=== PATIENT | female | born 1975 | race Caucasian/White ===

== ENCOUNTER → 2017-08-18 | Outpatient (CLI) | payer BC ==
[~2017-08-18] MED LIST: BUPR-79 PO; CLC100X PO; CYAN100073 PO; FLUT0.15 NAE; MULT-506 PO; PRED-301 PO; SERT50TA PO
[2017-08-18 13:11] LABS: BASO % 0.6 %; BASO ABS # 0.04 K/uL (0-0.2); COMPLETE YES; EOS % 3.7 %; HEMATOCRIT 43.2 % (37-47); IG% 0.1 %; LYMPH % 38.8 %; LYMPH ABS # 2.71 K/uL (1.2-3.4); MEAN CELL VOLUME 89.8 fL (80-100); MEAN CORPUSCULAR HEMOGLOBIN 29.7 pg (25-34); MEAN CORPUSCULAR HGB CONC 33.1 g/dl (32-36); MEAN PLATELET VOLUME 8.8 fL (7.4-10.4); MONO % 9.6 %; NEUT % 47.2 %; PLATELET COUNT 271 K/uL (130-400); RED BLOOD COUNT 4.81 M/uL (4.2-5.4); WHITE BLOOD COUNT 6.99 K/uL (4.8-10.8)
[2017-08-18 13:12] LABS: PREG INTERNAL NEGATIVE QC NEG CLEAR BACKGROUND; PREG INTERNAL POSITIVE QC POS CONTROL LINE
== END | disposition home or self-care (01) ==
LOC: C.LABBC 11:51
PROVIDERS: ATTEND Orthopaedic Surgery Orthopaedic Surgery of the Spine
DX: Z01.812 Encounter for preprocedural laboratory examination (principal)

== ENCOUNTER 2017-08-31 07:14 | Observation (INO) | payer BC ==
[2017-08-14 07:29] VITALS: BMI 38.0
--- NOTE | 2017-08-28 11:41 | HISTORY & PHYSICAL EXAMINATION ---
DATE OF ADMISSION: 08/31/2017 Preoped for surgery on Thursday, discectomy lumbar spine L4-L5. HISTORY OF PRESENT ILLNESS: Harriett is delightful. She has back, lower extremity difficulty, not associated with fever, sweats, chills, bowel and bladder issues. She has a huge disc herniation lumbar spine. She has cauda equina compression. She has done some therapy, some medication and is uncomfortable, barely manageable. PAST MEDICAL HISTORY: Anxiety, gastric bypass, difficulty with anesthesia. PAST SURGICAL HISTORY: [place] teeth, hernia, cholecystectomy, , gastric bypass surgery. ALLERGIES: EFFEXOR. MEDICATIONS: Baclofen, Zoloft, Wellbutrin. FAMILY HISTORY: Carcinoma, arthritis and heart disease. No tobacco use. No alcohol use. REVIEW OF SYSTEMS: Denies stiffness, weakness, fatigue. Admits to some weight gain. No chest pain, palpitations. No nausea, vomiting. No shortness of breath, no numbness, tingling, no easy bruisability. No connective tissue, no immune deficiency. PHYSICAL EXAMINATION: GENERAL: 5'3, 235, alert, oriented, in moderate distress. VITAL SIGNS: Blood pressure 130/80, pulse of 80. Respiration rate 16, afebrile. Alert, oriented. Mentation normal. LUNGS: Clear to auscultation. CARDIAC: Normal S1, S2, no S3. ABDOMEN: Soft and nontender. Bowel sounds present. She has no neurological deficits. The knee jerk reflexes are slightly diminished. She has adequate motor power extremities. She has no upper motor neuron issues. She has no skin breakdown. She has loss of range of motion. Images demonstrate large herniation, lumbar spine L4-L5. DISPOSITION: Includes a lumbar spine discectomy L4-L5 lumbar spine.
[~2017-08-31] VITALS: Ht 162.6 cm; Wt 101.4 kg
[2017-08-31] VITALS (10 sets, daily range): BP systolic 110–131; BP diastolic 62–93; PULSE 68–100; TEMP 36.5–36.8; O2SAT 97–100; Ht 162.6 cm; Wt 101.4 kg
[~2017-08-31 07:14] MED LIST changes: +CEFAZOLIN 2000MG IV PUSH 10 ML IV SCH; +LACTATED RINGER'S 1000ML 1,000 ML IV SCH; +SCOPOLAMINE 1.5 MG TDSY TD SCH; +SODIUM CHLORIDE 0.9% 1000ML 1,000 ML IV SCH
[2017-08-31 08:15] LABS: CALCIUM 8.4 mg/dl (8.5-10.1); CREATININE 0.81 mg/dl (0.60-1.20); POTASSIUM 3.9 mmol/L (3.5-5.1)
[2017-08-31] MEDS ORDERED: PROPOFOL IV EMULSION 10 MG/ML 20 ML VIAL IV ONE (08:55)
[2017-08-31] MEDS ORDERED: LIDOCAINE HCL 2% 2 ML VIAL (20MG/ML) ONE (08:55)
[2017-08-31] MEDS ORDERED: MIDAZOLAM HCL 1 MG/ML 2ML VIAL ONE (08:55)
[2017-08-31] MEDS ORDERED: ONDANSETRON INJ 2 MG/ML 2 ML VIAL ONE (08:55)
[2017-08-31] MEDS ORDERED: ROCURONIUM BROMIDE 10 MG/ML 5 ML VIAL IV ONE (08:55)
[2017-08-31] MEDS ORDERED: DEXAMETHASONE SOD INJ 4 MG/ML VIAL ONE (08:55)
[2017-08-31] MEDS ORDERED: FENTANYL CITRATE INJ 50 MCG/1 ML 2 ML VIAL ONE (08:56)
[2017-08-31] MEDS ORDERED: FENTANYL CITRATE INJ 50 MCG/1 ML 2 ML VIAL IV PRN (09:15)
[2017-08-31] MEDS ORDERED: ATROPINE SULFATE 0.1 MG/ML 5ML SYR IV PRN (09:15)
[2017-08-31] MEDS ORDERED: ONDANSETRON INJ 2 MG/ML 2 ML VIAL IV PRN ×2 (09:15→12:00)
[2017-08-31] MEDS ORDERED: EpHEDrine SULFATE INJ 50 MG/ML AMP IV PRN (09:15)
[2017-08-31] MEDS ORDERED: THROMBIN FOR SOLN 20000 UNIT KIT ONE (09:48)
[2017-08-31] MEDS ORDERED: GELATIN SPONGE SZ 100 ONE (09:48)
[2017-08-31] MEDS ORDERED: VANCOMYCIN HCL 1000MG/20ML VIAL ONE (09:48)
[2017-08-31] MEDS ORDERED: EpINEphrine INJ 1MG/ML AMP 1 MG/ML AMP ONE (09:49)
[2017-08-31] MEDS ORDERED: BACITRACIN 50000 UNIT VIAL ONE (09:49)
[2017-08-31] MEDS ORDERED: BUPIVACAINE 0.5 % 5 MG/1 ML MPF 30ML VIAL ONE (09:49)
--- NOTE | 2017-08-31 10:02 | History & Physical Bridge Note ---
H&P Re-Evaluation Bridge Note: I have examined the patient, reviewed the History & Physical and in the interval since the performance of the History & Physical I have noted the following changes of clinical significance: No changes noted
[2017-08-31] MEDS ORDERED: HYDROmorphone INJ 2 MG/ML SYR/VIAL ONE (10:30)
[2017-08-31] MEDS ORDERED: EpHEDrine SULFATE 50MG/5ML SYR ONE (11:28)
[2017-08-31] MEDS ORDERED: GLYCOPYRROLATE INJ 0.2 MG/ML VIAL ONE (11:28)
[2017-08-31] MEDS ORDERED: PHENYLEPHRINE HCL INJ 10 MG/ML VIAL ONE (11:28)
--- NOTE | 2017-08-31 11:56 | [facility] Post Operative Brief Note ---
Immediate Operative Summary Operative Date Aug 31, 2017. Pre-Operative Diagnosis Disc herniation lumbar spine L4-L5, Cauda equina compression Post-Operative Diagnosis Disc herniation lumbar spine L4-L5, Cauda equina compression Procedure(s) Performed L4-L5 Discectomy Surgeon Dr. Esdras Weiss Wheelchair Driver Surgeon(s) Seth Marx PA-C Estimated Blood Loss 100ML Findings massive herniation Specimens No pathology specimens per surgeon Complication(s) None Disposition Recovery Room / PACU
[2017-08-31] MEDS ORDERED: HYDROmorphone INJ 1 MG/ML SYR IV PRN ×2 (12:00)
[2017-08-31] MEDS ORDERED: OXYCODONE HCL IR 5 MG TAB (IMMEDIATE RELEASE) PO PRN ×2 (12:00)
[2017-08-31] MEDS ORDERED: PROMETHAZINE HCL INJ 12.5 MG in SODIUM CHLORIDE 0.9% 50ML 50 ML IV PRN (12:00)
[2017-08-31] MEDS ORDERED: MAGNESIUM HYDROXIDE SUSP 30 ML UDC PO PRN (12:00)
[2017-08-31] MEDS ORDERED: METOCLOPRAMIDE HCL INJ 5 MG/ML 2 ML VIAL IV PRN (12:00)
[2017-08-31] MEDS ORDERED: LORAZEPAM 1 MG TAB PO PRN (12:00)
[2017-08-31] MEDS ORDERED: LORAZEPAM INJ 1 MG in SYRINGE 0 ML IV PRN (12:00)
[2017-08-31] MEDS ORDERED: ACETAMINOPHEN 325 MG TAB PO PRN (12:00)
--- NOTE | 2017-08-31 12:08 | DIAGNOSTIC IMAGING REPORT ---
LUMBAR SPINE, INTRAOPERATIVE FLUOROSCOPY HISTORY: L4-5 discectomy. FLUOROSCOPY TIME: 4 seconds. FINDINGS: Intraoperative fluoroscopy was provided for the lumbar spine. A single fluoroscopic spot image of the lower lumbar spine. There are retractors posterior to the L4-L5 vertebral body levels. IMPRESSION: Fluoroscopy provided for a L4-5 discectomy. Electronically signed by: Anders Santizo M.D. 08/31/2017 12:07 PM Dictated Date/Time: 08/31/2017 12:06 PM
[2017-08-31 12:26] LABS: HEMOGLOBIN 12.5 g/dL (12.0-16.0)
--- NOTE | 2017-08-31 12:35 | OPERATIVE REPORT ---
DATE OF OPERATION: 08/31/2017 PREOPERATIVE DIAGNOSIS: Disc herniation, lumbar spine. POSTOPERATIVE DIAGNOSIS: Same. PROCEDURE: Lumbar spine laminectomy and discectomy. FINDINGS: Massive disc herniation, L4-L5. COMPLICATIONS: Zero. ESTIMATED BLOOD LOSS: Less than 100 mL. SURGEON: Dr. Weiss. PLASTIC SURGERY COORDINATOR: Seth Marx PA-C. COUNTS: Sponge and needle count correct at the close. DESCRIPTION OF PROCEDURE: The patient was taken to the surgical suite, placed prone. Steve catheter administered, scrubbed, prepped and draped sterile. I made a skin incision and fascia incision with L4-L5 interval of the lumbar spine. We marked this with a marker and a C-arm verification on x-ray. We cut down on the disc herniation, upgoing laminectomy, downgoing laminotomy, foraminotomy, partial facetectomy. We were able to retract the dura and the associated nerve root medial from the right hand side, her symptomatic side. We did piecemeal out a significant amount of disc material. 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 We kept working for more free fragments. I think we completely evacuated out the posterior elements. We probed the nerve roots. There were free of obstruction. The dura was free of any type of laceration. We irrigated and closed over vancomycin powder, which is vancomycin powder with #1 Vicryl suture and Hemovac drain, 2-0 in the subcuticular layer, and 3-0 nylon on the skin. Sterile dressings applied. The patient returned to PACU stable. No apparent complications. I attest to the content of the Intraoperative Record and any orders documented therein. Any exception s are noted below.
--- NOTE | 2017-08-31 12:53 | Anesthesiology Progress Note ---
Anesthesia Post Op Note Date & Time Aug 31, 2017 at 12:53 Vital Signs Pain Intensity: 3 Vital Signs Past 12 Hours Date Time Temp Pulse Resp B/P (MAP) Pulse Ox O2 Delivery O2 Flow Rate FiO2 08/31/17 12:40 36.6 98 18 126/73 98 Nasal Cannula 2 08/31/17 12:30 36.6 88 18 112/69 98 Nasal Cannula 2 08/31/17 12:20 88 21 128/71 99 Nasal Cannula 2 08/31/17 12:10 76 13 111/64 99 Oxymask 10 08/31/17 12:00 77 14 135/64 100 Oxymask 10 08/31/17 11:52 36.8 86 14 122/64 100 Oxymask 10 08/31/17 07:40 36.7 78 20 131/93 97 Room Air Notes Mental Status: alert / awake / arousable, participated in evaluation Pt Amnestic to Procedure: Yes Nausea / Vomiting: adequately controlled Pain: adequately controlled Airway Patency, RR, SpO2: stable & adequate BP & HR: stable & adequate Hydration State: stable & adequate Anesthetic Complications: no major complications apparent
[2017-08-31] MEDS ORDERED: SODIUM CHLORIDE 0.9% 1000ML 1,000 ML IV SCH (13:45)
[2017-08-31] MEDS ORDERED: CYANOCOBALAMIN 500 MCG TAB (VIT B-12) PO SCH (15:00)
[2017-08-31] MEDS: KETOROLAC TROMETHAMINE 30 MG/ML VIAL IV SCH ×2 (15:51→21:34)
[2017-08-31] MEDS: CHECK SCOPOLAMINE PATCH PLACEMENT SCH ×2 (15:51→23:31)
[2017-08-31] MEDS: ACETAMINOPHEN IV 1,000 MG in EMPTY BAG 0 ML IV SCH (17:30)
[2017-08-31] MEDS: CEFAZOLIN IV 2,000 MG in SYRINGE 0 ML IV SCH (17:31)
[2017-08-31] MEDS: DEXAMETHASONE INJ 10 MG in SYRINGE 0 ML IV SCH (17:40)
[2017-08-31] MEDS ORDERED: IV FLUIDS COMPLETED PRN (20:30)
[2017-08-31] MEDS ORDERED: SERTRALINE HCL 50 MG TAB PO SCH (21:00)
[2017-08-31] MEDS ORDERED: NURSING VERBAL MED ORDER ONE (21:45)
[2017-09-01] MEDS: ACETAMINOPHEN IV 1,000 MG in EMPTY BAG 0 ML IV SCH ×2 (01:40→10:06)
[2017-09-01] MEDS: CEFAZOLIN IV 2,000 MG in SYRINGE 0 ML IV SCH ×2 (01:40→10:06)
[2017-09-01] MEDS: DEXAMETHASONE INJ 10 MG in SYRINGE 0 ML IV SCH ×3 (01:40→16:37)
[2017-09-01] MEDS: KETOROLAC TROMETHAMINE 30 MG/ML VIAL IV SCH ×3 (03:56→16:36)
[2017-09-01] MEDS ORDERED: BISACODYL 5 MG TABEC PO PRN (06:00)
[2017-09-01] MEDS ORDERED: BISACODYL 10 MG SUPP PR PRN (06:00)
[2017-09-01 07:24] VITALS: BP 113/70; PULSE 51; TEMP 36.9; O2SAT 98
[2017-09-01] MEDS: CHECK SCOPOLAMINE PATCH PLACEMENT SCH ×2 (07:39→16:00)
[2017-09-01] MEDS ORDERED: OXYC-57 PO (07:50)
--- NOTE | 2017-09-01 07:52 | Discharge Instructions ---
Discharge Instructions Date of Service Sep 01, 2017. Admission Reason for Admission: Lumbar Disc Herniation L4-L5 Discharge Discharge Diagnosis / Problem: same Discharge Goals Goal(s): Improve function Activity Recommendations Activity Limitations: as noted below Lifting Limitations: until after follow-up appointment Exercise/Sports Limitations: until after follow-up appointment May Resume Sexual Activity: after follow-up appointment Shower/Bathe: may shower/bathe in 3 days . Instructions / Follow-Up Instructions / Follow-Up MEDICATIONS: Please take your prescriptions as instructed at your pre-op appointment. SPECIAL CARE: The following information is intended to answer some of the common questions and concerns regarding your surgery. Each patient is an individual and receives individual counselling throughout the course of treatment, from diagnosis to surgery all the way through recovery. What follows is not an exhaustive list, but should be a useful guide to some of the common questions and concerns patients have regarding their surgeries. These are not provided to keep you from calling us; rather, they give you something accurate and concrete to reference as you recover from your procedure. If you need us, we are available to you. As always, if you are not sure about something, call us at [phone]. MEDICAL EMERGENCIES: For these conditions, call 911 or go to your local hospital-based Emergency Department - not [facility] or equivalent. * Paralysis * Severe chest pain or difficulty breathing * Swelling or redness of either leg Spine procedures can be rather complex and though complications are rare, they do occur. In such cases, effective advice regarding emergency situations cannot always be addressed over the telephone. You may be referred to the emergency department for more effective management of your problem. Activity Limitations: It is important to give your body time to heal, so please limit your activities : * In general, don't do anything that moves your spine too much. You should avoid contact sports, twisting or heavy lifting while you recover. * 5-10 pounds is all you should attempt to lift. * You should not plan on driving for approximately 3 weeks and you should avoid traveling more than 30-45 minutes at a time. Longer trips should be broken down with walking breaks spaced appropriately. * Physical therapy is not usually required. * Walking and good posture practices will help you recover and regain your function. * Avoid straining or sudden changes in position. * In general, the goal is to take it easy and recover. Don't cause any new problems. Just relax. Showers: * Do not take a bath, use a Jacuzzi or hot tub or otherwise submerge your incision. * It is usually safe to take a shower 4-5 days after your surgery. * Your incision does not require any special creams or ointments. * Simply clean it with soap and water, dry and re-dress with a clean bandage afterwards. Incision: * Keep incision clean, dry and protected until your first follow-up appointment. * Some amount of drainage and redness is normal. Any drainage should be fairly clear and not have a foul odor. * If you feel anything is wrong or you have excessive drainage, please call us. * Your stitches and landon will be removed 10-14 days after your surgery. At the time of your first post-op visit. * Neck surgeries are typically closed with a suture underneath the skin. The steri-strips over the incision should be maintained until we see you in the office. Bracing: * You may be provided with a back or neck brace to encourage good posture and prevent injury. It will remind you not to do too much as you heal and will alert others to the fact that you have had a surgery. * Back braces may be removed for showers and when you are resting at home. They must be worn when you are walking around for any period of time or for travel. * For neck surgery, you will likely be provided with two cervical collars. The soft collar ([place] or foam rubber) is worn most commonly throughout the day and while sleeping. The plastic collar (provided at the hospital) is for showering/bathing. * Except while eating, collars should remain in place. More specifically, bracing is provided for a purpose and should be worn. * Please obtain your brace or collars prior to your operation and bring them to the hospital with you on the day of surgery. * You should also bring your collars to your post-op appointment with Dr. Weiss. You should always take good care of your body and practice healthy habits, especially following surgery. You should: * Follow your doctor's treatment plan * Sit and stand properly with good posture (ears over shoulders, shoulders over hips) Don't slouch * Learn to lift correctly * Exercise regularly (low-impact aerobic exercise is especially good, but check with your doctor first) * Generally, be up and walking for 5-10 minutes at a time at least 3-4 times per day from the day you get home * Increasing walking to tolerance until you can walk for 20-30 minutes at a time * Attain and maintain a healthy body weight * Eat healthy foods ( a well-balanced, low-fat diet rich in fruits and vegetables) and get enough calcium * Avoid excessive use of alcohol When to call our office - If you notice any of the following: * Increased pain not relieve by pain medicine * Fevers greater then 100 degrees F, chills or flu symptoms * Increased redness around incision * Drainage from the incision that is not clear * Any foul smelling drainage * Swelling or fluid collection beneath the skin Miscellaneous: * In the hospital, you may be given a walker or cane for support while walking. These are temporary needs and are intended to prevent injuries due to falls. You may discontinue them when you feel strong and steady enough on your feet. * Sleep in a comfortable position. We find that many patients find a lounge chair or recliner with several pillows to be beneficial in the early post-operative period. * The support stockings should be used for 7-10 days and may be discontinued when you are back to walking more and conducting usual household activities. No problem is insignificant. We are here to help you and get you well. Contact us at [phone]. Definitions: Foraminotomy: If part of the disc or a bone spur (osteophyte) is pressing on a nerve as it leaves the vertebra (through an exit called the foramen), a foraminotomy may be done. Otomy means "to make an opening." A foraminotomy is making the opening of the foramen larger, so the nerve can exit without being compressed. Laminotomy: Similar to the foraminotomy, a laminotomy makes a larger opening, this time in your bony plate protecting your spinal canal and spinal cord (the lamina). The lamina may be pressing on your nerve, so the surgeon may make more room for the nerves using a laminotomy. Laminectomy: Sometimes, a laminotomy is not sufficient. The surgeon may need to remove all or part of the lamina. This procedure is called a laminectomy. This can often be done at many levels without any harmful effects. Current Hospital Diet Patient's current hospital diet: Regular Diet Discharge Diet Recommended Diet: Regular Diet Procedures Procedures Performed: L4-L5 Discectomy Pending Studies Studies pending at discharge: no Medical Emergencies . Who to Call and When: Medical Emergencies: If at any time you feel your situation is an emergency, please call 911 immediately. . Non-Emergent Contact Non-Emergency issues call your: Primary Care Provider . "Provider Documentation" section prepared by Esdras Weiss. . VTE Core Measure Inpt VTE Proph given/why not?: Treatment not indicated
--- NOTE | 2017-09-01 08:00 | DISCHARGE SUMMARY ---
Improved, stable, minimal complaints of pain, has not been ambulatory as of yet. Vital signs stable. Moves all extremities. ASSESSMENT: Status post lumbar discectomy for a huge disc herniation, lumbar spine L4-L5 making appropriate progress. DISPOSITION: Instructions, precautions, education, to get her up and ambulatory today. Hopefully home around 5:00 this afternoon. Percocet prescription on chart. Instructions, precautions provided.
--- NOTE | 2017-09-01 08:16 | Anesthesiology Progress Note ---
Anesthesia Post Op Note Date & Time Sep 01, 2017 at 08:14 Vital Signs Pain Intensity: 3.0 Vital Signs Past 12 Hours Date Time Temp Pulse Resp B/P (MAP) Pulse Ox O2 Delivery O2 Flow Rate FiO2 09/01/17 07:24 36.9 51 17 113/70 (84) 98 Room Air 09/01/17 07:08 Room Air 08/31/17 23:45 97 Room Air 08/31/17 22:51 36.8 68 18 120/77 (91) 99 Nasal Cannula 2.0 Notes Mental Status: alert / awake / arousable, participated in evaluation Pt Amnestic to Procedure: Yes Nausea / Vomiting: adequately controlled Pain: adequately controlled Airway Patency, RR, SpO2: stable & adequate BP & HR: stable & adequate Hydration State: stable & adequate Anesthetic Complications: no major complications apparent
[2017-09-01] MEDS ORDERED: DOCUSATE SODIUM 100 MG CAP PO SCH (09:00)
[2017-09-01] MEDS ORDERED: BuPROPion SR 150 MG TABCR PO SCH (09:00)
[2017-09-01] MEDS ORDERED: POLYETHYLENE (MIRALAX) 17 GM PACK PO SCH (09:00)
[2017-09-01] MEDS ORDERED: MULTIVITAMIN TAB PO SCH (09:00)
[2017-09-01 09:06] VITALS: BP 113/70; PULSE 51; TEMP 36.9; O2SAT 98
[2017-09-01 11:08] VITALS: BP 131/84; PULSE 65; TEMP 37; O2SAT 99
[2017-09-01 16:42] VITALS: BP 115/71; PULSE 59; TEMP 37.7; O2SAT 95
== END 2017-09-01 17:20 | disposition home or self-care (01) ==
LOC: C.ACU 07:14 → C.3E 11:57 → ENRESERV 12:42
PROVIDERS: ADMIT Orthopaedic Surgery Orthopaedic Surgery of the Spine; ATTEND Orthopaedic Surgery Orthopaedic Surgery of the Spine
DX: M51.26 Other intervertebral disc displacement, lumbar region (principal); G47.33 Obstructive sleep apnea (adult) (pediatric); Z98.84 Bariatric surgery status; Z90.49 Acquired absence of other specified parts of digestive tract; Z82.49 Family history of ischemic heart disease and other diseases of the circulatory system

== ENCOUNTER 2017-09-24 09:31 | Observation (INO) | payer BC ==
[2017-09-23 14:19] VITALS: BMI 38.0
[2017-09-24] VITALS (7 sets, daily range): BP systolic 103–125; BP diastolic 68–81; PULSE 57–92; TEMP 36.6–37; O2SAT 95–99; Ht 162.6 cm; Wt 101.4 kg
[~2017-09-24] VITALS: Ht 162.6 cm; Wt 101.4 kg
--- NOTE | 2017-09-24 08:17 | HISTORY & PHYSICAL EXAMINATION ---
DATE OF ADMISSION: 09/24/2017 CHIEF COMPLAINT: Seroma lumbar spine. HISTORY OF PRESENT ILLNESS: Harriett is a delightful patient. We did a discectomy surgery on her a few weeks ago. She has developed a postoperative seroma. We have agreed for an I&D and closure of the wound. I think it is more prudent thing to do versus to let it be and have multiple appointments and possible infectious problems down the road. She is not in much pain. She has no neurological deficit. PAST MEDICAL HISTORY: Positive for spine problems, low back problems. No kidney, liver disease. No history of carcinoma. Does have nausea coming out of anesthesia. Slight obesity. No angina, chest pain, asthma, wheezing. Does have anxiety. PAST SURGICAL HISTORY: Lumbar spine discectomy, cholecystectomy, hernia repair, , wisdom teeth. ALLERGIES: Denied. MEDICATIONS: Zoloft, Wellbutrin. REVIEW OF SYSTEMS: Denies any blurred vision, double vision, tinnitus, vertigo, cephalgia, migraines. No chest pain, shortness of breath, angina. No nausea, vomiting. No urgency, frequency, dysuria. Denies asthma, wheezing, shortness of breath. PHYSICAL EXAMINATION: GENERAL: She is 5 foot 5 inches, she is 200 pounds. She is in no terrible distress. HEENT: Normal. HEART: Normal S1, S2, no S3. LUNGS: Clear. ABDOMEN: Soft, nontender. Bowel sounds present. VITAL SIGNS: Blood pressure 130/80, pulse of 80, respiration rate 12. Afebrile. Wound is relatively clean, slight drainage from the middle and superior aspects of the lumbar spine wound. There is no purulence, there is no warmth or erythema about the wound edges. ASSESSMENT: Postop seroma. PROCEDURE: Includes an I&D of seroma, lumbar spine.
[~2017-09-24 09:31] MED LIST changes: +BUPR-83 PO; -CEFAZOLIN 2000MG IV PUSH 10 ML IV SCH; +CEFAZOLIN 2000MG IV PUSH 15 ML IV SCH; -LACTATED RINGER'S 1000ML 1,000 ML IV SCH; +LACTATED RINGER'S 1000ML IV SCH; +LEVO1IUD2; +METROGEL 1% TOP; +NSS 1000ML IV SCH; +OXYC-57 PO; +POLY335019 PO; -PRED-301 PO; -SODIUM CHLORIDE 0.9% 1000ML 1,000 ML IV SCH
[2017-09-24] MEDS ORDERED: ONDANSETRON INJ 2 MG/ML 2 ML VIAL ONE (10:23)
[2017-09-24] MEDS ORDERED: NEOSTIGMINE METHYLSULFATE 1 MG/ML 10ML VIAL ONE (10:23)
[2017-09-24] MEDS ORDERED: FENTANYL CITRATE INJ 50 MCG/1 ML 2 ML VIAL ONE (10:23)
[2017-09-24] MEDS ORDERED: GLYCOPYRROLATE INJ 0.2 MG/ML VIAL ONE ×2 (10:23→12:09)
[2017-09-24] MEDS ORDERED: DEXAMETHASONE SOD INJ 4 MG/ML VIAL ONE (10:23)
[2017-09-24] MEDS ORDERED: MIDAZOLAM HCL 1 MG/ML 2ML VIAL ONE (10:23)
[2017-09-24] MEDS ORDERED: LIDOCAINE HCL 2% 2 ML VIAL (20MG/ML) ONE (10:23)
[2017-09-24] MEDS ORDERED: PROPOFOL IV EMULSION 10 MG/ML 20 ML VIAL IV ONE (10:23)
[2017-09-24] MEDS ORDERED: VANCOMYCIN HCL 1000MG/20ML VIAL ONE (11:12)
[2017-09-24] MEDS ORDERED: GELATIN SPONGE SZ 100 ONE (11:12)
[2017-09-24] MEDS ORDERED: THROMBIN FOR SOLN 20000 UNIT KIT ONE ×2 (11:12→11:14)
[2017-09-24] MEDS ORDERED: BUPIVACAINE/EPINEPHRINE 0.5% MPF 1:200,000 30 ML VIAL ONE (11:13)
[2017-09-24] MEDS ORDERED: GENTAMICIN SULFATE 40 MG/ML 2 ML VIAL ONE ×2 (11:43→11:47)
[2017-09-24] MEDS ORDERED: EpHEDrine SULFATE 50MG/5ML SYR ONE (11:53)
[2017-09-24] MEDS ORDERED: ATROPINE SULFATE 0.1 MG/ML 5ML SYR IV PRN (12:00)
[2017-09-24] MEDS ORDERED: PROMETHAZINE HCL INJ 12.5 MG in SODIUM CHLORIDE 0.9% 50ML 50 ML IV PRN ×2 (12:00→12:45)
[2017-09-24] MEDS ORDERED: EpHEDrine SULFATE INJ 50 MG/ML AMP IV PRN (12:00)
[2017-09-24] MEDS ORDERED: HYDROmorphone INJ 0.5 MG/0.5 ML SYR IV PRN (12:00)
[2017-09-24] MEDS ORDERED: ONDANSETRON INJ 2 MG/ML 2 ML VIAL IV PRN ×2 (12:00→12:45)
[2017-09-24] MEDS ORDERED: NALOXONE HCL 0.4 MG/1 ML VIAL/CARP IV PRN (12:00)
[2017-09-24] MEDS ORDERED: FLUMAZENIL 0.1 MG/1 ML 10 ML VIAL IV PRN (12:00)
[2017-09-24] MEDS ORDERED: LABETALOL HCL IV 5 MG/ML 20ML IV PRN (12:00)
[2017-09-24] MEDS ORDERED: ESMOLOL HCL 10 MG/ML 10 ML VIAL ONE (12:31)
--- NOTE | 2017-09-24 12:34 | [facility] Post Operative Brief Note ---
Immediate Operative Summary Operative Date Sep 24, 2017. Pre-Operative Diagnosis Seroma of Lumbar Spine Post-Operative Diagnosis Seroma of Lumbar Spine Procedure(s) Performed Incision and Drainage Seroma Lumbar Spine and Insertion of Stimulan Beads Surgeon Dr. Weiss Assistant Credit Manager Surgeon(s) Seth Marx PA-C Estimated Blood Loss 100mL Findings Consistent with Post-Op Diagnosis Specimens Microbiology #1- lumbar spine: gram stain, routine culture and sensitivity, anaerobic, out of room at 1205. Drains hemovac Anesthesia Type General Complication(s) none Disposition Disposition: Recovery Room / PACU
[2017-09-24] MEDS ORDERED: OXYCODONE/ACETAMINOPHEN 5-325 TAB PO PRN (12:45)
[2017-09-24] MEDS ORDERED: LORAZEPAM 1 MG TAB PO PRN (12:45)
[2017-09-24] MEDS ORDERED: METROGEL 1% TOP SCH (12:45)
[2017-09-24] MEDS ORDERED: HYDROmorphone INJ 1 MG/ML SYR IV PRN (12:45)
[2017-09-24] MEDS ORDERED: VANCOMYCIN CONSULT ACTIVE PRN (12:45)
[2017-09-24] MEDS ORDERED: LORAZEPAM INJ 1 MG in SYRINGE 0 ML IV PRN (12:45)
[2017-09-24] MEDS ORDERED: HYDROmorphone INJ 2 MG/ML SYR/VIAL IV PRN (12:45)
[2017-09-24] MEDS ORDERED: MAGNESIUM HYDROXIDE SUSP 30 ML UDC PO PRN (12:45)
[2017-09-24] MEDS ORDERED: METOCLOPRAMIDE HCL INJ 5 MG/ML 2 ML VIAL IV PRN (12:45)
[2017-09-24] MEDS ORDERED: HYDROmorphone INJ 1 MG/ML SYR ONE (12:48)
--- NOTE | 2017-09-24 13:09 | OPERATIVE REPORT ---
DATE OF OPERATION: 09/24/2017 PREOPERATIVE DIAGNOSIS: Seroma, lumbar spine. POSTOPERATIVE DIAGNOSES: Seroma, lumbar spine; possible infection, lumbar spine, relatively superficial. SURGEON: Esdras Weiss DO. DREDGE LEVER OPERATOR: Seth Marx PA-C. PROCEDURE: Incision and drainage, debridement and irrigation of lumbar spinal wound. COMPLICATIONS: Zero. BLOOD LOSS: Less than 100 mL. IMPLANTS USED: No implants used. NOTE: We did use vancomycin and gentamicin beads as at the close of the procedure. DESCRIPTION OF PROCEDURE: The patient was taken to the operating room, a general intubated anesthetic provided to the patient, placed prone, scrubbed first, prepped second and draped sterile. We used her old incision, there was obviously fluid, blood tinged into the soft tissue region. The region measured approximately 3 cm x 8 cm. Cultures were taken. There was no gross pus. There was some discoloration. We then took out #1 Vicryl suture that was just placed approximately 3 weeks ago. We irrigated with pulse lavage, 2 big bags of fluid with a total of 6000 mL of fluid and superficial and deeper layers. I was very pleased with the clean phan, the lack of contamination. I think we got eradicated the problem. We then irrigated with a bulb syringe. I placed vancomycin and gentamicin impregnated beads deep to the wound, closed over Hemovac drain with 1 Vicryl suture, 2-0 on the subcuticular layer also over some vancomycin beads and 3-0 Prolene on the skin surface. Sterile dressing applied. The wound anesthetized with Marcaine solution. The patient safely extubated to PACU stable. Sponge and needle count correct at the close. No complications. I attest to the content of the Intraoperative Record and any orders documented therein. Any exception s are noted below.
--- NOTE | 2017-09-24 13:12 | Anesthesiology Progress Note ---
Anesthesia Post Op Note Date & Time Sep 24, 2017 at 13:12 Vital Signs Pain Intensity: 3 Vital Signs Past 12 Hours Date Time Temp Pulse Resp B/P (MAP) Pulse Ox O2 Delivery O2 Flow Rate FiO2 09/24/17 13:05 95 21 118/67 100 Nasal Cannula 4 09/24/17 12:55 96 13 119/70 100 Oxymask 10 09/24/17 12:45 100 18 127/64 100 Oxymask 10 09/24/17 12:38 36.5 103 12 119/67 100 Oxymask 10 09/24/17 09:58 37.0 88 18 125/81 (96) 97 Room Air Notes Mental Status: alert / awake / arousable, participated in evaluation Pt Amnestic to Procedure: Yes Nausea / Vomiting: adequately controlled Pain: adequately controlled Airway Patency, RR, SpO2: stable & adequate BP & HR: stable & adequate Hydration State: stable & adequate Anesthetic Complications: no major complications apparent
[2017-09-24] MEDS ORDERED: IV FLUIDS COMPLETED PRN (14:00)
[2017-09-24] MEDS ORDERED: POLYETHYLENE (MIRALAX) 17 GM PACK PO PRN (15:00)
[2017-09-24] MEDS ORDERED: SODIUM CHLORIDE 0.9% 1000ML 1,000 ML IV SCH (15:15)
[2017-09-24] MEDS: CHECK SCOPOLAMINE PATCH PLACEMENT SCH (16:00)
[2017-09-24] MEDS ORDERED: NURSING VERBAL MED ORDER ONE (21:30)
[2017-09-24] MEDS: OXYCODONE/ACETAMINOPHEN 5-325 TAB PO PRN (21:39)
[2017-09-24] MEDS: SERTRALINE HCL 50 MG TAB PO SCH (21:40)
[2017-09-25] MEDS ORDERED: VANCOMYCIN INJ 1,500 MG in SODIUM CHLORIDE 0.9% 500ML 500 ML IV ONE ×2
[2017-09-25] MEDS: CHECK SCOPOLAMINE PATCH PLACEMENT SCH ×4 (00:23→19:41)
[2017-09-25] MEDS: OXYCODONE/ACETAMINOPHEN 5-325 TAB PO PRN (03:10)
[2017-09-25 03:47] VITALS: BP 106/65; PULSE 55; TEMP 36.7; O2SAT 97
[2017-09-25] MEDS ORDERED: BISACODYL 10 MG SUPP PR PRN (06:00)
[2017-09-25] MEDS ORDERED: BISACODYL 5 MG TABEC PO PRN (06:00)
[2017-09-25] MEDS ORDERED: NURSING DECISION MEDICATION ORDER SCH (07:15)
--- NOTE | 2017-09-25 07:50 | Anesthesiology Progress Note ---
Anesthesia Post Op Note Date & Time Sep 25, 2017 at 07:50 Vital Signs Pain Intensity: 2.0 Vital Signs Past 12 Hours Date Time Temp Pulse Resp B/P (MAP) Pulse Ox O2 Delivery O2 Flow Rate FiO2 09/25/17 03:47 36.7 55 16 106/65 (79) 97 Room Air 09/25/17 00:40 Room Air 09/24/17 23:15 36.6 57 16 103/68 (80) 97 Room Air Notes Mental Status: alert / awake / arousable, participated in evaluation Pt Amnestic to Procedure: Yes Nausea / Vomiting: adequately controlled Pain: adequately controlled Airway Patency, RR, SpO2: stable & adequate BP & HR: stable & adequate Hydration State: stable & adequate Anesthetic Complications: no major complications apparent
[2017-09-25 08:03] VITALS: BP 116/70; PULSE 59; TEMP 36.7; O2SAT 98
[2017-09-25] MEDS: DOCUSATE SODIUM 100 MG CAP PO SCH (08:44)
[2017-09-25] MEDS: MULTIVITAMIN TAB PO SCH (08:45)
[2017-09-25] MEDS ORDERED: VANCOMYCIN CONSULT ACTIVE PRN (08:45)
[2017-09-25] MEDS: BuPROPion SR 150 MG TABCR PO SCH (08:45)
[2017-09-25] MEDS: POLYETHYLENE (MIRALAX) 17 GM PACK PO SCH (08:45)
[2017-09-25] MEDS: HYDROmorphone HCL 2 MG TAB PO PRN ×4 (08:46→21:26)
[2017-09-25] MEDS ORDERED: CYANOCOBALAMIN 500 MCG TAB (VIT B-12) PO SCH (09:00)
[2017-09-25 10:49] VITALS: O2SAT 98
[2017-09-25 11:58] VITALS: BP 116/68; PULSE 52; TEMP 36.8; O2SAT 100
[2017-09-25 15:07] VITALS: BP 90/57; PULSE 58; TEMP 36.9; O2SAT 99
[2017-09-25] MEDS: ACETAMINOPHEN 325 MG TAB PO PRN ×2 (15:51→23:54)
[2017-09-25] MEDS ORDERED: CEFTRIAXONE SOD INJ 2,000 MG in DEXTROSE 5% 50ML 50 ML IV SCH (18:00)
[2017-09-25] MEDS: SERTRALINE HCL 50 MG TAB PO SCH (21:26)
[2017-09-25 23:20] VITALS: BP_SYST 110; BP_SYST 90; BP_DIAS 60; BP_DIAS 72; PULSE 60; PULSE 93; TEMP 36.6; TEMP 36.9; O2SAT 97; O2SAT 99
[2017-09-26] MEDS ORDERED: VANCOMYCIN INJ 1,000 MG in SODIUM CHLORIDE 0.9% 250ML 250 ML IV SCH ×2
[2017-09-26] MEDS: HYDROmorphone HCL 2 MG TAB PO PRN (05:03)
[2017-09-26] MEDS: CHECK SCOPOLAMINE PATCH PLACEMENT SCH (06:50)
[2017-09-26 07:05] VITALS: BP 89/53; PULSE 65; TEMP 36.7; O2SAT 98
[2017-09-26] MEDS: BuPROPion SR 150 MG TABCR PO SCH (09:20)
[2017-09-26] MEDS: POLYETHYLENE (MIRALAX) 17 GM PACK PO SCH (09:20)
[2017-09-26] MEDS: MULTIVITAMIN TAB PO SCH (09:20)
[2017-09-26] MEDS: DOCUSATE SODIUM 100 MG CAP PO SCH (09:20)
[2017-09-26] MEDS: OXYCODONE/ACETAMINOPHEN 5-325 TAB PO PRN (09:23)
[2017-09-26 10:27] VITALS: BP 89/53; PULSE 65; TEMP 36.7; O2SAT 98
[2017-09-26] MEDS ORDERED: OXYC-57 PO (10:32)
[2017-09-26] MEDS ORDERED: CEFD300C2 PO (10:34)
--- NOTE | 2017-09-26 10:36 | Discharge Instructions ---
Discharge Instructions Date of Service Sep 26, 2017. Admission Reason for Admission: Seroma Lumbar Spine Discharge Discharge Diagnosis / Problem: same Discharge Goals Goal(s): Improve function Activity Recommendations Activity Limitations: as noted below Lifting Limitations: until after follow-up appointment Exercise/Sports Limitations: until after follow-up appointment May Resume Sexual Activity: after follow-up appointment Shower/Bathe: keep incision dry . Current Hospital Diet Patient's current hospital diet: Regular Diet Discharge Diet Recommended Diet: Regular Diet Procedures Procedures Performed: Incision and Drainage Seroma Lumbar Spine and Insertion of Stimulan Beads Pending Studies Studies pending at discharge: no Medical Emergencies . Who to Call and When: Medical Emergencies: If at any time you feel your situation is an emergency, please call 911 immediately. . Non-Emergent Contact Non-Emergency issues call your: Primary Care Provider . "Provider Documentation" section prepared by Esdras Weiss. . VTE Core Measure Inpt VTE Proph given/why not?: Treatment not indicated
[2017-09-26] MEDS: ACETAMINOPHEN 325 MG TAB PO PRN (14:59)
[2017-09-26 15:17] VITALS: BP 105/50; PULSE 63; TEMP 37.3; O2SAT 100
== END 2017-09-26 15:30 | disposition home or self-care (01) ==
LOC: C.ACU 09:31 → C.3E 12:42 → ENRESERV 13:14
PROVIDERS: ADMIT Orthopaedic Surgery Orthopaedic Surgery of the Spine; ATTEND Orthopaedic Surgery Orthopaedic Surgery of the Spine
DX: G97.63 Postprocedural seroma of a nervous system organ or structure following a nervous system procedure (principal); F41.9 Anxiety disorder, unspecified; F32.9 Major depressive disorder, single episode, unspecified; G47.33 Obstructive sleep apnea (adult) (pediatric); E66.9 Obesity, unspecified; Z90.49 Acquired absence of other specified parts of digestive tract; Z86.79 Personal history of other diseases of the circulatory system; Z98.84 Bariatric surgery status

== ENCOUNTER 2017-10-01 11:17 | Emergency (ER) | payer BC ==
[~2017-10-01] VITALS: Ht 162.6 cm; Wt 103.8 kg
[~2017-10-01 11:17] MED LIST changes: -CEFAZOLIN 2000MG IV PUSH 15 ML IV SCH; +CEFD300C2 PO; -LACTATED RINGER'S 1000ML IV SCH; -NSS 1000ML IV SCH; -SCOPOLAMINE 1.5 MG TDSY TD SCH
[2017-10-01 11:30] VITALS: Ht 162.6 cm; Wt 103.8 kg
[2017-10-01] MEDS ORDERED: CIPR1TAB11 PO (12:08)
[2017-10-01 12:39] LABS: BASO % 1.3 %; BASO ABS # 0.07 K/uL (0-0.2); EOS ABS # 0.38 K/uL (0-0.5); HEMATOCRIT 35.6 % (37-47); IG# 0.03 K/uL (0.00-0.02); LYMPH % 28.6 %; LYMPH ABS # 1.55 K/uL (1.2-3.4); MEAN CELL VOLUME 87.7 fL (80-100); MEAN CORPUSCULAR HEMOGLOBIN 29.6 pg (25-34); MEAN CORPUSCULAR HGB CONC 33.7 g/dl (32-36); MEAN PLATELET VOLUME 8.4 fL (7.4-10.4); MONO % 8.9 %; MONO ABS # 0.48 K/uL (0.11-0.59); NEUT % 53.6 %; NEUT ABS # 2.91 K/uL (1.4-6.5); PLATELET COUNT 265 K/uL (130-400); RED CELL DISTRIBUTION WIDTH CV 12.4 % (11.5-14.5); RED CELL DISTRIBUTION WIDTH SD 39.8 fL (36.4-46.3); WHITE BLOOD COUNT 5.42 K/uL (4.8-10.8)
[2017-10-01 12:47] LABS: INR 0.9 (0.9-1.1); PTT PATIENT 24.7 SECONDS (21.0-31.0)
[2017-10-01 12:57] LABS: BLOOD UREA NITROGEN 13 mg/dl (7-18); CALCIUM 8.7 mg/dl (8.5-10.1); CARBON DIOXIDE 28 mmol/L (21-32); CREATININE 0.93 mg/dl (0.60-1.20); GLUCOSE 91 mg/dl (70-99); POTASSIUM 3.9 mmol/L (3.5-5.1); SODIUM 136 mmol/L (136-145)
--- NOTE | 2017-10-01 14:38 | EMERGENCY ROOM VISIT NOTE ---
History Report prepared by Alina: Corry Croft Under the Supervision of: Dr. Jayson Young M.D. First contact with patient: 11:38 Chief Complaint: WOUND INFECTION Stated Complaint: SURGICAL INCISION, DR WEISS REQUESTED SHE COME IN History of Present Illness The patient is a 42 year old white female with a past medical history of lumbar discectomy, C section, cholecystectomy, gastric bypass, depression, hernia surgery who presents to the ED with a cc of worsening wound infection beginning 1 week ago. Positive cloudy yellow drainage. Negative fever, chills, incontinence, cough. The patient was on Omnicef and switched to cipro yesterday. She admits to occasional alcohol, denies tobacco use. The patient recently had I&D of spinal seroma with Dr. Weiss. She had lumbar discectomy on Aug [address] Weiss. Her I&D resulted in serratia pansensitive to antibiotics. Source of History: patient Onset: 1 week ago Position: back Quality: other (wound infection) Timing: worsening Associated Symptoms: No fevers, No chills, No cough Review of Systems See HPI for pertinent positives and negatives. A total of ten systems were reviewed and were otherwise negative. Past Medical & Surgical Medical Problems: (1) Lumbar disc herniation with radiculopathy (2) Wound abscess Family History Cancer Hypertension Kidney disease Kidney stones Social History Smoking Status: Never Smoker Marital Status: Occupation Status: employed Current/Historical Medications Scheduled Bupropion (Wellbutrin Sr), 150 MG PO QAM Bupropion (Wellbutrin), 100 MG PO QPM Ciprofloxacin Tab (Cipro), 250 MG PO Q12 Cyanocobalamin (B12), 1 TAB PO 2XWK Docusate Sodium (Docusate Sodium), 200 MG PO QAM Polyethylene Glycol 3350 (Miralax), 17 GM PO PRN Sertraline (Zoloft), 75 MG PO QPM Scheduled PRN Oxycodone/Acetaminophen 5MG/325MG (Percocet 5MG/325MG), 1-2 TABLETS PO Q6 PRN for Pain Miscellaneous Medications Levonorgestrel (Iud) (Mirena) Allergies Coded Allergies: Venlafaxine (Verified Adverse Reaction, Intermediate, PARANOID, 09/24/17) MAKES PATIENT PARANOID AND FEELS LIKE SHE IS GOING THROUGH WITHDRAWAL Physical Exam Vital Signs Date Time Temp Pulse Resp B/P (MAP) Pulse Ox O2 Delivery O2 Flow Rate FiO2 10/01/17 14:51 36.9 68 18 119/66 98 10/01/17 11:30 36.5 103 20 123/81 96 Room Air Physical Exam GENERAL: Obese. Awake, alert, well-appearing, NAD HENT: Normocephalic, atraumatic. EYES: Normal conjunctiva. Sclera non-icteric. NECK: Supple. No nuchal rigidity. FROM. RESPIRATORY: CTAB, no rhonchi, wheezing, crackles CARDIAC: RRR, no MRG ABDOMEN: Soft, NTND, BS+ MSK: No chest wall TTP, no LE edema. Some serous drainage coming from lateral to midline of lower back. No real erythema noted. Mild TTP. Several Prolene sutures in place. NEURO: GCS 15, CN 2-12 intact, moves all 4s on command SKIN: No rash or jaundice noted. Medical Decision & Procedures Laboratory Results 10/01/17 12:16 Red Blood Count 4.06, Mean Corpuscular Volume 87.7, Mean Corpuscular Hemoglobin 29.6, Mean Corpuscular Hemoglobin Concent 33.7, Mean Platelet Volume 8.4, Neutrophils (%) (Auto) 53.6, Lymphocytes (%) (Auto) 28.6, Monocytes (%) (Auto) 8.9, Eosinophils (%) (Auto) 7.0, Basophils (%) (Auto) 1.3, Neutrophils # (Auto) 2.91, Lymphocytes # (Auto) 1.55, Monocytes # (Auto) 0.48, Eosinophils # (Auto) 0.38, Basophils # (Auto) 0.07 10/01/17 12:16 Test 10/01/17 12:16 White Blood Count 5.42 K/uL (4.8-10.8) Red Blood Count 4.06 M/uL (4.2-5.4) Hemoglobin 12.0 g/dL (12.0-16.0) Hematocrit 35.6 % (37-47) Mean Corpuscular Volume 87.7 fL (80-100) Mean Corpuscular Hemoglobin 29.6 pg (25-34) Mean Corpuscular Hemoglobin Concent 33.7 g/dl (32-36) Platelet Count 265 K/uL (130-400) Mean Platelet Volume 8.4 fL (7.4-10.4) Neutrophils (%) (Auto) 53.6 % Lymphocytes (%) (Auto) 28.6 % Monocytes (%) (Auto) 8.9 % Eosinophils (%) (Auto) 7.0 % Basophils (%) (Auto) 1.3 % Neutrophils # (Auto) 2.91 K/uL (1.4-6.5) Lymphocytes # (Auto) 1.55 K/uL (1.2-3.4) Monocytes # (Auto) 0.48 K/uL (0.11-0.59) Eosinophils # (Auto) 0.38 K/uL (0-0.5) Basophils # (Auto) 0.07 K/uL (0-0.2) RDW Standard Deviation 39.8 fL (36.4-46.3) RDW Coefficient of Variation 12.4 % (11.5-14.5) Immature Granulocyte % (Auto) 0.6 % Immature Granulocyte # (Auto) 0.03 K/uL (0.00-0.02) Erythrocyte Sedimentation Rate 22 mm/hr (0-21) Prothrombin Time 9.8 SECONDS (9.0-12.0) Prothromb Time International Ratio 0.9 (0.9-1.1) Activated Partial Thromboplast Time 24.7 SECONDS (21.0-31.0) Partial Thromboplastin Ratio 1.0 Anion Gap 4.0 mmol/L (3-11) Est Creatinine Clear Calc Drug Dose 91.6 ml/min Estimated GFR () 87.2 Estimated GFR (Non- 75.3 BUN/Creatinine Ratio 14.0 (10-20) Calcium Level 8.7 mg/dl (8.5-10.1) C-Reactive Protein < 0.29 mg/dl (0-0.29) Laboratory results reviewed by ca ED Course 1150: The patient was evaluated in room A3. A complete history and physical exam was performed. 1352: I discussed the patient's case with a PA with [facility]. He will come to evaluate the patient. 1433: Dr Weiss has evaluated the patient and agrees with continuing current plan of care. She will follow up . I reevaluated the patient. Discussed results and discharge instructions: She verbalized understanding and agreement. The patient is ready for discharge. Medical Decision The patient is a 42 year old white female with a past medical history of lumbar discectomy, C section, cholecystectomy, gastric bypass, depression, hernia surgery who presents to the ED with a cc of worsening wound infection beginning 1 week ago. Differential diagnosis: Etiologies such as cellulitis, abscess, MRSA infection, DVT, necrotizing fasciitis, dermatitis, drug eruption, post op infection, seroma as well as others were entertained. Patient seen and evaluated at bedside. Noted increased drainage from inicisional site. Patient did have lumbar discectomy by Dr. Weiss in August and then I&D of seroma earlier this month. Noted increased drainage. They were concerned about infx. No fever, chills, or LE numbness/tingling/weakness. Patient only mild pain at site. Site looks good and no noted purulent drainage. Difficult to tell if dressing had purulent drainage. Blood work obtained and Dr. Weiss consulted. WBC WNL. ESR tracely elevated. CRP not elevated. Patient seen and evaluated by Dr. Weiss at bedside. Agreed not infected. Continue current pain regimen, dressing changes, and abx. Has f/u on Thursday. Return precautions given. D/c'ed to home. Medication Reconcilliation Current Medication List: was personally reviewed by me Blood Pressure Screening Patient's blood pressure: Normal blood pressure Blood pressure disposition: Did not require urgent referral Consults Time Called: 1220 Consulting Physician: [facility] Returned Call: 1352 I discussed the patient's case with a PA with [facility]. He will come to evaluate the patient. Impression Primary Impression: Draining postoperative wound Scribe Attestation The scribe's documentation has been prepared under my direction and personally reviewed by me in its entirety. I confirm that the note above accurately reflects all work, treatment, procedures, and medical decision making performed by me. Departure Information Dispostion Home / Self-Care Referrals No Doctor, Assigned (PCP) Esdras Weiss, DO Patient Instructions ED Wound Care, My [facility] Additional Instructions Please return to the emergency department if you have worsening or recurrent symptoms not amenable to at-home treatment. Please call for a follow-up appointment with her primary care physician. Please take your medications as prescribed. If you have other concerns and/or complaints please feel free to also call your primary care physician's office or return the ED for further evaluation, management, and treatment. Please keep your follow-up with as scheduled. Please continue your current antibiotics. You may take 600 mg Ibuprofen every 6 hours as needed for pain with food for no more than 2 consecutive days. You may take tylenol 1000 mg every 6 hours as needed for pain. You may take motrin and tylenol separately or at the same time. Take your medications as prescribed. If taking an antibiotic consider taking a probiotic and/or eating yogurt, but at the least, please take with food as it can cause upset stomach. If culture results are not available at discharge, if they are positive for concern of infection, you will be informed of the results as soon as they are available. If you were seen between 11pm and 7AM all radiology reads will be re-read by our in house staff. If any major discrepancies are discovered, you will be notified. You have been examined and treated today on an emergency basis only. This is not a substitute for, or an effort to provide, complete comprehensive medical care. It is impossible to recognize and treat all injuries or illnesses in a single emergency department visit. It is therefore important that you follow up closely with [facility], your PCP, and/or your specialist(s). Call as soon as possible for an appointment. Thank you for your time and consideration. I look forward to speaking with you again soon. Please don't hesitate to call us if you have any questions. Problem Qualifiers Primary Impression: Draining postoperative wound Encounter type: initial encounter Qualified Codes: T81.89XA - Other complications of procedures, not elsewhere classified, initial encounter
[2017-10-01 14:51] VITALS: BP 119/66; PULSE 68; TEMP 36.9; O2SAT 98
== END 2017-10-01 14:53 | disposition home or self-care (01) ==
LOC: C.EDB 11:21 → C.EDA 14:53
DX: T81.89XA Other complications of procedures, not elsewhere classified, initial encounter (principal); Y83.8 Other surgical procedures as the cause of abnormal reaction of the patient, or of later complication, without mention of misadventure at the time of the procedure; Z80.9 Family history of malignant neoplasm, unspecified; Z82.49 Family history of ischemic heart disease and other diseases of the circulatory system; Z84.1 Family history of disorders of kidney and ureter; Z79.899 Other long term (current) drug therapy

== ENCOUNTER 2017-11-25 22:49 | Emergency (ER) | payer BC ==
[~2017-11-25] VITALS: Ht 162.6 cm; Wt 103.2 kg
[~2017-11-25 22:49] MED LIST changes: -CEFD300C2 PO; +CIPR1TAB11 PO; -FLUT0.15 NAE; -METROGEL 1% TOP; -MULT-506 PO
[2017-11-25 23:08] VITALS: TEMP 36.7; Ht 162.6 cm; Wt 103.2 kg
[2017-11-25 23:52] LABS: BASO % 1.4 %; BASO ABS # 0.06 K/uL (0-0.2); EOS % 2.4 %; HEMATOCRIT 36.5 % (37-47); IG# 0.01 K/uL (0.00-0.02); LYMPH % 28.3 %; LYMPH ABS # 1.18 K/uL (1.2-3.4); MEAN CELL VOLUME 83.9 fL (80-100); MEAN CORPUSCULAR HEMOGLOBIN 27.6 pg (25-34); MEAN CORPUSCULAR HGB CONC 32.9 g/dl (32-36); MEAN PLATELET VOLUME 8.6 fL (7.4-10.4); MONO % 9.6 %; NEUT % 58.1 %; NEUT ABS # 2.42 K/uL (1.4-6.5); PLATELET COUNT 287 K/uL (130-400); RED CELL DISTRIBUTION WIDTH CV 12.5 % (11.5-14.5); RED CELL DISTRIBUTION WIDTH SD 38.2 fL (36.4-46.3); WHITE BLOOD COUNT 4.17 K/uL (4.8-10.8)
--- NOTE | 2017-11-25 23:58 | EMERGENCY ROOM VISIT NOTE ---
History Report prepared by Alina: Geoffrey Hilliard Under the Supervision of: Dr. Meghan Londono D.O. First contact with patient: 23:13 Chief Complaint: MENTAL HEALTH EVALUATION Stated Complaint: MHID History of Present Illness The patient is a 42 year old female who presents to the Emergency Room with complaints of an episodic general mental health evaluation [employer]. The patient states that she and her are recently and today is their anniversary. She states that she and her are on good terms, though she is not handling the anniversary date well. She notes her stepson is autistic and bipolar that has caused stress within the relationship. She reports vomiting , which she associates with alcohol consumption. She notes drinking a bottle of wine and a shot of liqueur. She reports marijuana use this past week. She notes that she is nauseous. She regularly follows with her psychiatrist and a separate counselor. She notes that in the past six weeks she was weaned off of Wellbutrin and her Lamictal dose was increased. She takes 50 mg of Zoloft and 100 mg of Lamictal. She notes that she was doing well on the Lamictal. She recently had two back surgeries in August 2017. She had an infection two weeks ago and was given Cipro, which she completed and notes her infection has cleared up. She has a history of gastric bypass 10 years ago. s. Source of History: patient Onset: [employer] Position: other (general) Quality: other (mental health evaluation) Timing: other (episodic) Associated Symptoms: + nausea, + vomiting Review of Systems See HPI for pertinent positives & negatives. A total of 10 systems reviewed and were otherwise negative. Past Medical & Surgical Medical Problems: (1) Lumbar disc herniation with radiculopathy (2) Wound abscess Family History Cancer Hypertension Kidney disease Kidney stones Social History Smoking Status: Never Smoker Marital Status: Occupation Status: employed Current/Historical Medications Scheduled Lamotrigine (Lamictal), 100 MG PO DAILY Sertraline (Zoloft), 50 MG PO DAILY Allergies Coded Allergies: Venlafaxine (Verified Adverse Reaction, Intermediate, PARANOID, 09/24/17) MAKES PATIENT PARANOID AND FEELS LIKE SHE IS GOING THROUGH WITHDRAWAL Physical Exam Vital Signs Date Time Temp Pulse Resp B/P (MAP) Pulse Ox O2 Delivery O2 Flow Rate FiO2 11/26/17 00:08 60 18 146/85 99 Room Air 11/25/17 23:08 36.7 85 18 133/86 97 Room Air Physical Exam GENERAL: alert, well appearing, well nourished, no distress, non-toxic. Smells of ETOH. Tearful. EYE EXAM: normal conjunctiva, PERRL and EOM's grossly intact OROPHARYNX: no exudate, no erythema, lips, buccal mucosa, and tongue normal and mucous membranes are moist NECK: supple, no nuchal rigidity, no adenopathy, non-tender LUNGS: Clear to auscultation. Normal chest wall mechanics HEART: no murmurs, S1 normal and S2 normal ABDOMEN: abdomen soft, non-tender, normo-active bowel sounds, no masses, no rebound or guarding. BACK: Back is symmetrical on inspection and there is no deformity, no midline tenderness, no CVA tenderness. SKIN: no rashes and no bruising UPPER EXTREMITIES: upper extremities are grossly normal. LOWER EXTREMITIES: No pitting edema. NEURO EXAM: Normal sensorium, cranial nerves II-XII grossly intact, normal speech, no gross weakness of arms, no gross weakness of legs. PSYCH: Depression. Anxiety. Medical Decision & Procedures Laboratory Results 11/25/17 23:40 Red Blood Count 4.35, Mean Corpuscular Volume 83.9, Mean Corpuscular Hemoglobin 27.6, Mean Corpuscular Hemoglobin Concent 32.9, Mean Platelet Volume 8.6, Neutrophils (%) (Auto) 58.1, Lymphocytes (%) (Auto) 28.3, Monocytes (%) (Auto) 9.6, Eosinophils (%) (Auto) 2.4, Basophils (%) (Auto) 1.4, Neutrophils # (Auto) 2.42, Lymphocytes # (Auto) 1.18, Monocytes # (Auto) 0.40, Eosinophils # (Auto) 0.10, Basophils # (Auto) 0.06 11/25/17 23:40 Test 11/25/17 23:08 11/25/17 23:12 11/25/17 23:40 Urine Color YELLOW Urine Appearance CLEAR (CLEAR) Urine pH 5.0 (4.5-7.5) Urine Specific Kelly 1.012 (1.000-1.030) Urine Protein NEG (NEG) Urine Glucose (UA) NEG (NEG) Urine Ketones NEG (NEG) Urine Occult Blood 1+ (NEG) Urine Nitrite NEG (NEG) Urine Bilirubin NEG (NEG) Urine Urobilinogen NEG (NEG) Urine Leukocyte Esterase NEG (NEG) Urine WBC (Auto) 1-5 /hpf (0-5) Urine RBC (Auto) 0-4 /hpf (0-4) Urine Hyaline Casts (Auto) 1-5 /lpf (0-5) Urine Epithelial Cells (Auto) 10-20 /lpf (0-5) Urine Bacteria (Auto) NEG (NEG) Urine Opiates Screen NEG (NEG) Urine Methadone, Qualitative NEG (NEG) Urine Barbiturates NEG (NEG) Urine Phencyclidine (PCP) Level NEG (NEG) Ur Amphetamine/Methamphetamine NEG (NEG) MDMA (Ecstasy) Screen NEG (NEG) Urine Benzodiazepines Screen NEG (NEG) Urine Cocaine Metabolite NEG (NEG) Urine Marijuana (THC) NEG (NEG) Bedside Urine Test NEG (NEG) White Blood Count 4.17 K/uL (4.8-10.8) Red Blood Count 4.35 M/uL (4.2-5.4) Hemoglobin 12.0 g/dL (12.0-16.0) Hematocrit 36.5 % (37-47) Mean Corpuscular Volume 83.9 fL (80-100) Mean Corpuscular Hemoglobin 27.6 pg (25-34) Mean Corpuscular Hemoglobin Concent 32.9 g/dl (32-36) Platelet Count 287 K/uL (130-400) Mean Platelet Volume 8.6 fL (7.4-10.4) Neutrophils (%) (Auto) 58.1 % Lymphocytes (%) (Auto) 28.3 % Monocytes (%) (Auto) 9.6 % Eosinophils (%) (Auto) 2.4 % Basophils (%) (Auto) 1.4 % Neutrophils # (Auto) 2.42 K/uL (1.4-6.5) Lymphocytes # (Auto) 1.18 K/uL (1.2-3.4) Monocytes # (Auto) 0.40 K/uL (0.11-0.59) Eosinophils # (Auto) 0.10 K/uL (0-0.5) Basophils # (Auto) 0.06 K/uL (0-0.2) RDW Standard Deviation 38.2 fL (36.4-46.3) RDW Coefficient of Variation 12.5 % (11.5-14.5) Immature Granulocyte % (Auto) 0.2 % Immature Granulocyte # (Auto) 0.01 K/uL (0.00-0.02) Anion Gap 6.0 mmol/L (3-11) Est Creatinine Clear Calc Drug Dose 119.5 ml/min Estimated GFR () 120.9 Estimated GFR (Non- 104.3 BUN/Creatinine Ratio 9.7 (10-20) Calcium Level 8.1 mg/dl (8.5-10.1) Total Bilirubin 0.2 mg/dl (0.2-1) Aspartate Amino Transf (AST/SGOT) 14 U/L (15-37) Alanine Aminotransferase (ALT/SGPT) 16 U/L (12-78) Alkaline Phosphatase 74 U/L (45-117) Total Protein 7.1 gm/dl (6.4-8.2) Albumin 3.4 gm/dl (3.4-5.0) Globulin 3.7 gm/dl (2.5-4.0) Albumin/Globulin Ratio 0.9 (0.9-2) Thyroid Stimulating Hormone (TSH) 2.010 uIu/ml (0.300-4.500) Salicylates Level < 1.7 mg/dl (2.8-20) Acetaminophen Level < 2 ug/ml (10-30) Ethyl Alcohol mg/dL 42.6 mg/dl (0-3) Laboratory results per my review. Medications Administered Medications (Trade) Dose Ordered Sig/Aleksandar Route Start Time Stop Time Status Last Admin Dose Admin Ondansetron HCl (Zofran Odt) 4 mg ONE ONCE PO 11/26/17 02:00 11/26/17 02:01 DC 11/26/17 01:55 4 MG ED Course 2325: The patient was evaluated in room A8. A complete history and physical exam was performed. 0058: I spoke with FRANCISCA Adamsassistant plant manager manager of case. We discussed the patients case. 0200: Ordered Zofran 4 mg PO 0644: The patient has been accepted to the [facility]. Unable to be transported until 11am. Medical Decision Prior records/ancillary studies reviewed. Triage Nursing notes reviewed. The patient's history was concerning for possible psychiatric disturbance. Differential diagnosis: Etiologies such as mood disorder, infection, hypoglycemia, electrolyte abnormalities, cardiac sources, intracerebral event, toxicologic, neurologic, as well as others were entertained. Medication Reconcilliation Current Medication List: was personally reviewed by me Blood Pressure Screening Patient's blood pressure: Elevated blood pressure Blood pressure disposition: Elevated BP felt to be situational Impression Primary Impression: Suicidal ideation Additional Impression: Mood disorder Scribe Attestation The scribe's documentation has been prepared under my direction and personally reviewed by me in its entirety. I confirm that the note above accurately reflects all work, treatment, procedures, and medical decision making performed by me. Departure Information Dispostion [facility] ([facility]) Referrals Nathaly Lucas D.O. (PCP) Patient Instructions My [facility] Problem Qualifiers
[2017-11-26 00:15] LABS: ALBUMIN 3.4 gm/dl (3.4-5.0); CALCIUM 8.1 mg/dl (8.5-10.1); CREATININE 0.71 mg/dl (0.60-1.20)
[2017-11-26 00:39] LABS: TOTAL PROTEIN 7.1 gm/dl (6.4-8.2)
[2017-11-26] MEDS ORDERED: SERT50TA PO (00:39)
[2017-11-26] MEDS ORDERED: LAMO100T16 PO (00:49)
[2017-11-26] MEDS ORDERED: ONDANSETRON 4MG OD TAB PO ONE (02:00)
[2017-11-26] MEDS ORDERED: SERTRALINE HCL 100 MG TAB PO STA (07:58)
[2017-11-26] MEDS ORDERED: NURSING VERBAL MED ORDER ONE (08:45)
[2017-11-26] MEDS ORDERED: FLUTICASONE PROPIONATE NA SPR 16 GM BTL PRN (09:15)
[2017-11-26 11:40] VITALS: BP 133/78; PULSE 68; O2SAT 99
== END 2017-11-26 11:38 ==
LOC: C.EDA 22:49 → EDBD 22:49 → EDSEX 22:49 → C.EDA 11-26 11:38
DX: R45.851 Suicidal ideations (principal); F39 Unspecified mood [affective] disorder; M54.16 Radiculopathy, lumbar region; Z88.8 Allergy status to other drugs, medicaments and biological substances